=== PATIENT | female | born 1995 | race Hispanic/Latino ===

== ENCOUNTER 2018-04-26 09:30 | Emergency (ER) | payer OTHER ==
[2018-04-26 11:00] LABS: RAPID GROUP A STREP NEGATIVE (NEGATIVE)
[2018-04-26] MEDS ORDERED: ACETAMINOPHEN 325 MG TAB ONE (11:22)
[2018-04-26] MEDS ORDERED: AMOXICILLIN 500 MG CAPSULE PO ONE (11:22)
== END 2018-04-26 11:41 | disposition home or self-care (01) ==
LOC: EDH 09:30
DX: J02.9 Acute pharyngitis, unspecified (principal); R50.81 Fever presenting with conditions classified elsewhere
CPT/HCPCS: 87804; 87880